=== PATIENT | female | born 1935 | race Caucasian/White ===

== ENCOUNTER 2019-06-10 06:20 | Day surgery (SDC) | payer OTHER, MEDICARE ==
[~2019-06-10] VITALS: Ht 170.2 cm; Wt 57.6 kg
--- NOTE | ~2019-06-10 | O ---
[facility] [place] [address] OPERATIVE REPORT Name: ROB CRAFT Room #: 150-7 [facility]..#: [id number] Admission: 06/10/19 Attend Phys: Gil Gao MD Discharge: Date of : 39 Report #: [id number] THIS REPORT FOR: //name// CC: MIKI Guadalupe Physician staff Denis Gao DATE OF SERVICE: 06/10/2019 SURGEON: Gil Gao M.D. SENIOR ELECTRICAL PROJECT MANAGER: None. PREOPERATIVE DIAGNOSIS: Bilateral lower lid ectropion. POSTOPERATIVE DIAGNOSIS: Bilateral lower lid ectropion. OPERATION PERFORMED: Bilateral lower lid ectropion repair. ANESTHESIA: Local with IV sedation. COMPLICATIONS: None. INDICATIONS FOR PROCEDURE: This patient has bilateral acquired lower lid ectropion with chronic tearing, keratopathy and discharge. The current procedures are undertaken in order to improve the patient's visual function, lacrimal outflow, and level of comfort. Informed consent was obtained to include but not limit to the risk of loss of vision, bleeding, infection, scarring, failure to improve the problem and need for further surgery. DESCRIPTION OF OPERATION: The patient was taken to the operating room where 2% Xylocaine with epinephrine mixed with equal parts of 0.75% Marcaine with Wydase was administered transcutaneously and transconjunctivally to each lower lid and lateral canthal area. The patient was then prepped and draped in the usual sterile fashion. A Trav clamp was then used to clamp the left lateral canthus following which a sharp canthotomy and cantholysis were performed. The tarsal strip was prepared laterally, removing the lash bearing portion of the redundant lid margin and the redundant tarsal plate. Hemostasis was achieved with a monopolar cautery, as it was throughout the case. The tarsal strip was then secured to the internal portion of the lateral orbital tubercle with two interrupted 5-0 Prolene sutures. The lateral canthal angle was sharply reformed as the subcutaneous structures and the skin were closed with multiple interrupted 6-0 plain gut sutures. [facility] [address] [place] [address] OPERATIVE REPORT Name: LUANAROB Room #: 150-7 [facility] M..#: [id number] Admission: 06/10/19 Attend Phys: Gil Gao MD Discharge: Date of : 39 Report #: [id number] Attention was then turned to the right side where the same procedure was performed. The wounds were cleaned and dressed with ophthalmic antibiotic ointment. The patient was then transported to the recovery area, having tolerated the procedure well with no anesthetic or operative complications being noted. By: [id number] Gil Gao MD /nt
[~2019-06-10 06:20] MED LIST: CYPROHEPTADINE 44 MG PO; FOLIC ACID0.8 M1 PO; LISINOPRIL30 MG PO; MAGNESIUM OXID250 MG PO; NORVASC5 M1 PO; PROPAFENONE 15150 MG PO; PROSCAR 5MG TABL5 MG PO; SYNTHROID50 MCG PO; ULTRA COQ1075 MG PO
[2019-06-10 07:30] VITALS: BP 141/79
== END 2019-06-10 08:55 | disposition home or self-care (01) ==
LOC: OR 06:20 → TBA 06:20 → OR 08:55
DX: H02.105 Unspecified ectropion of left lower eyelid (principal); H02.102 Unspecified ectropion of right lower eyelid; I10 Essential (primary) hypertension; E03.9 Hypothyroidism, unspecified; Z85.828 Personal history of other malignant neoplasm of skin; Z90.710 Acquired absence of both cervix and uterus; Z98.41 Cataract extraction status, right eye; Z98.42 Cataract extraction status, left eye; Z86.73 Personal history of transient ischemic attack (TIA), and cerebral infarction without residual deficits; Z98.890 Other specified postprocedural states; Z79.899 Other long term (current) drug therapy; Z88.8 Allergy status to other drugs, medicaments and biological substances
CPT/HCPCS: 50010; 50101; 50386; 50398; 51636; 56527; 56531